=== PATIENT | male | born 1990 | race Caucasian/White ===

== ENCOUNTER 2023-09-21 15:22 | Emergency (ER) | payer BC ==
[~2023-09-21] VITALS: Ht 175.3 cm; Wt 110.0 kg
[2023-09-21 15:25] VITALS: BP 146/105; PULSE 90; RESP 16; TEMP 98.8; O2SAT 97
[2023-09-21] MEDS ORDERED: ONDANSETRON HCL 4MG/2ML INJ IV ONE (17:15)
[2023-09-21] MEDS ORDERED: DIAZEPAM 5 MG/ML 2ML CPJ IV ONE (17:15)
== END 2023-09-21 16:51 | disposition home or self-care (01) ==
LOC: ER 15:22
DX: F20.2 Catatonic schizophrenia (principal); F31.9 Bipolar disorder, unspecified; Z88.0 Allergy status to penicillin
CPT/HCPCS: 99283